=== PATIENT | male | born 1965 | race Caucasian/White ===

== ENCOUNTER 2023-07-06 10:32 | Inpatient (IN) ==
[2023-07-06 11:24] LABS: ABS Basophils 0.1 10^3/uL (0.0-0.1); ABS Eosinophils 0.3 10^3/uL (0.0-0.5); ABS Lymphocytes 2.2 10^3/uL (1.0-4.8); ABS Monocytes 0.7 10^3/uL (0.0-1.1); ABS Neutrophils 5.9 10^3/uL (1.5-7.6); ABS Nucleated RBC 0.02 10^3/ul; Eosinophil % 2.8 %; Hematocrit 46.5 % (38-53); Lymphocyte % 24.2 %; Mean Corpuscular Hemoglobin 29.9 pg (27-33); Mean Corpuscular Hgb Conc 34.5 g/dL (31-36); Mean Corpuscular Volume 86.8 fL (80-97); Mean Platelet Volume 7.9 fL (7.5-11.2); Nucleated Red Blood Cells % 0.2 %/100WBC (0.0-0.8); Platelet Count 226 10^3/uL (150-450); Red Blood Count 5.36 10^6/uL (4.06-5.63); White Blood Count 9.2 10^3/uL (3.6-10.2)
[2023-07-06 11:54] LABS: Albumin 4.3 g/dL (3.2-5.2); Albumin/Globulin Ratio 1.7 (1-3); Calcium 9.4 mg/dL (8.6-10.3); Creatinine, Serum 1.13 mg/dL (0.67-1.17); Globulin 2.5 g/dL (2-4); Magnesium 1.9 mg/dL (1.9-2.7); Potassium 4.4 mmol/L (3.5-5.0); Total Bilirubin 0.7 mg/dL (0.2-1.0); Total Protein 6.8 g/dL (6.4-8.9); eGFR CKD-EPI 74.9 (>60)
[2023-07-06 12:08] LABS: TSH Ultra Thyroid Stim Horm 2.2 mcIU/mL (0.34-5.60)
[2023-07-06 12:50] LABS: High Sensitivity Troponin 1 Hr 13 pg/mL (<20)
[2023-07-06] MEDS ORDERED: Sulfur Hexaflouride MICROSPHR 25 MG VIAL ONE (15:12)
[2023-07-07 06:04] LABS: ABS Basophils 0.1 10^3/uL (0.0-0.1); ABS Eosinophils 0.3 10^3/uL (0.0-0.5); ABS Lymphocytes 1.9 10^3/uL (1.0-4.8); ABS Monocytes 0.6 10^3/uL (0.0-1.1); ABS Neutrophils 4.7 10^3/uL (1.5-7.6); ABS Nucleated RBC 0.02 10^3/ul; Eosinophil % 4.2 %; Hematocrit 44.4 % (38-53); Hemoglobin 15.7 g/dL (13.2-16.3); Mean Corpuscular Hemoglobin 30.2 pg (27-33); Mean Corpuscular Hgb Conc 35.3 g/dL (31-36); Mean Corpuscular Volume 85.6 fL (80-97); Mean Platelet Volume 7.9 fL (7.5-11.2); Nucleated Red Blood Cells % 0.3 %/100WBC (0.0-0.8); Platelet Count 194 10^3/uL (150-450); Red Blood Count 5.18 10^6/uL (4.06-5.63); Red Cell Distribution Width 14.2 % (12-17); White Blood Count 7.6 10^3/uL (3.6-10.2)
[2023-07-07 06:35] LABS: Calcium 8.8 mg/dL (8.6-10.3); Creatinine, Serum 0.95 mg/dL (0.67-1.17); Magnesium 1.8 mg/dL (1.9-2.7); Phosphorus 4.1 mg/dL (2.5-5.0); Potassium 3.9 mmol/L (3.5-5.0); eGFR CKD-EPI 92.2 (>60)
[2023-07-07] MEDS: Magnesium Sulfate 2 gm BAG 2 GM/50 ML BAG IVPB ONE (09:20)
[2023-07-07] MEDS: Atropine 0.1 MG/ML 10 ml SYR (1 mg) ONE (23:35)
[2023-07-08 06:09] LABS: ABS Basophils 0.1 10^3/uL (0.0-0.1); ABS Eosinophils 0.3 10^3/uL (0.0-0.5); ABS Lymphocytes 2.2 10^3/uL (1.0-4.8); ABS Monocytes 0.7 10^3/uL (0.0-1.1); ABS Neutrophils 4.6 10^3/uL (1.5-7.6); ABS Nucleated RBC 0.03 10^3/ul; Eosinophil % 4.2 %; Hematocrit 46.8 % (38-53); Hemoglobin 16.4 g/dL (13.2-16.3); Lymphocyte % 27.7 %; Mean Corpuscular Hemoglobin 30.2 pg (27-33); Mean Corpuscular Volume 86.2 fL (80-97); Mean Platelet Volume 7.8 fL (7.5-11.2); Nucleated Red Blood Cells % 0.4 %/100WBC (0.0-0.8); Platelet Count 204 10^3/uL (150-450); Red Blood Count 5.43 10^6/uL (4.06-5.63); Red Cell Distribution Width 14.1 % (12-17); White Blood Count 7.8 10^3/uL (3.6-10.2)
[2023-07-08 06:39] LABS: Calcium 9.3 mg/dL (8.6-10.3); Magnesium 1.9 mg/dL (1.9-2.7); Phosphorus 4.5 mg/dL (2.5-5.0); Potassium 4.1 mmol/L (3.5-5.0); eGFR CKD-EPI 86.7 (>60)
[2023-07-08] MEDS: NS 0.9% 1000 ml BAG 1,000 ML IV SCH (07:08)
[2023-07-08] MEDS: Magnesium Sulfate 2 gm BAG 2 GM/50 ML BAG IVPB ONE (08:31)
[2023-07-08] MEDS: ceFAZolin 2 GM in NS PREMIX 2 GM/100 ML BAG IVPB ONE (08:37)
[2023-07-08] MEDS ORDERED: Lidocaine 1% VIAL 10 MG/ML 30 ML VIAL ONE ×2 (15:52→16:39)
[2023-07-08] MEDS ORDERED: Midazolam 5 mg/5 ml VIAL 1 mg/ml 5 ml VIAL (5 mg) ONE (15:57)
[2023-07-08] MEDS ORDERED: fentaNYL 100 mcg/2 ml 50 MCG/ML VIAL ONE (15:57)
[2023-07-08] MEDS: ceFAZolin 2 GM/50 ML BAG IV ONE (16:00)
[2023-07-08] MEDS ORDERED: Iohexol 300 (CONTRAST) 10 ML SDV ONE ×2 (16:02→16:45)
[2023-07-08] MEDS: fentaNYL 100 mcg/2 ml 50 MCG/ML VIAL IV SLOW PU ONE (16:30)
[2023-07-08] MEDS: Midazolam 10 mg/10 ml VIAL 1 mg/ml 10 ml VIAL (10 mg) IV SLOW PU ONE (16:30)
[2023-07-08] MEDS ORDERED: KCL 10 MEQ/50 ML IVPREMIX 10 MEQ/50 ML BAG ONE (17:21)
[2023-07-08] MEDS ORDERED: Magnesium Sulfate IV 1GM/100ML 1 GM/100 ML BAG IV ONE (17:22)
[2023-07-08] MEDS: ceFAZolin VIAL 1 GM in NS 0.9% 50 ML 50 ML IVPB SCH (23:13)
[2023-07-09 05:37] LABS: ABS Basophils 0.1 10^3/uL (0.0-0.1); ABS Eosinophils 0.4 10^3/uL (0.0-0.5); ABS Lymphocytes 1.8 10^3/uL (1.0-4.8); ABS Neutrophils 7.3 10^3/uL (1.5-7.6); ABS Nucleated RBC 0.07 10^3/ul; Eosinophil % 3.4 %; Hematocrit 49.9 % (38-53); Hemoglobin 17.7 g/dL (13.2-16.3); Lymphocyte % 16.7 %; Mean Corpuscular Hemoglobin 30.4 pg (27-33); Mean Corpuscular Hgb Conc 35.6 g/dL (31-36); Mean Corpuscular Volume 85.6 fL (80-97); Mean Platelet Volume 7.6 fL (7.5-11.2); Nucleated Red Blood Cells % 0.7 %/100WBC (0.0-0.8); Platelet Count 196 10^3/uL (150-450); Red Blood Count 5.83 10^6/uL (4.06-5.63); Red Cell Distribution Width 14.1 % (12-17); White Blood Count 10.5 10^3/uL (3.6-10.2)
[2023-07-09 06:22] LABS: Calcium 8.7 mg/dL (8.6-10.3); Creatinine, Serum 0.98 mg/dL (0.67-1.17); Phosphorus 3.7 mg/dL (2.5-5.0); Potassium 4.5 mmol/L (3.5-5.0); eGFR CKD-EPI 88.8 (>60)
[2023-07-10 05:41] LABS: ABS Basophils 0.1 10^3/uL (0.0-0.1); ABS Eosinophils 0.3 10^3/uL (0.0-0.5); ABS Lymphocytes 2.2 10^3/uL (1.0-4.8); ABS Neutrophils 4.7 10^3/uL (1.5-7.6); ABS Nucleated RBC 0.04 10^3/ul; Eosinophil % 4.2 %; Hematocrit 48.1 % (38-53); Hemoglobin 16.9 g/dL (13.2-16.3); Lymphocyte % 26.7 %; Mean Corpuscular Hgb Conc 35.2 g/dL (31-36); Mean Corpuscular Volume 85.1 fL (80-97); Mean Platelet Volume 7.4 fL (7.5-11.2); Nucleated Red Blood Cells % 0.4 %/100WBC (0.0-0.8); Platelet Count 176 10^3/uL (150-450); Red Blood Count 5.65 10^6/uL (4.06-5.63); Red Cell Distribution Width 13.7 % (12-17); White Blood Count 8.3 10^3/uL (3.6-10.2)
[2023-07-10 06:25] LABS: Calcium 8.6 mg/dL (8.6-10.3); Creatinine, Serum 0.94 mg/dL (0.67-1.17); Magnesium 1.9 mg/dL (1.9-2.7); Phosphorus 3.8 mg/dL (2.5-5.0); eGFR CKD-EPI 93.4 (>60)
[2023-07-11 11:18] VITALS: BP 132/86
[2023-07-11 11:38] LABS: Calcium 9.7 mg/dL (8.6-10.3); Creatinine, Serum 1.04 mg/dL (0.67-1.17); Potassium 4.2 mmol/L (3.5-5.0); eGFR CKD-EPI 82.7 (>60)
== END 2023-07-11 13:10 | disposition home or self-care (01) | DRG 244 ==
LOC: EDHOLD 10:32 → ED 10:32 → ICU 07-07 11:18 → MEDTELE 07-07 11:35 → SUATTDRO 07-07 12:37 → MEDTELE 07-09 15:10
PROVIDERS: ADMIT Internal Medicine Critical Care Medicine; ATTEND Internal Medicine

== ENCOUNTER 2023-10-19 10:00 | Inpatient (IN) ==
[2023-10-19] MEDS ORDERED: Naloxone 0.4 mg VIAL 0.4 mg/ml 1 ml VIAL IV PRN (10:08)
[2023-10-19] MEDS ORDERED: Acetaminophen IV 1 GM/100ML 1,000 MG/100 ML BAG IV ONE (10:08)
[2023-10-19] MEDS ORDERED: Scopolamine 1 mg/72hr PATCH TRANSDERM ONE (10:08)
[2023-10-19] MEDS ORDERED: Metoclopramide 5 MG/ML VIAL (10 mg) IV PRN (10:08)
[2023-10-19] MEDS ORDERED: Ondansetron 4 mg VIAL 2 MG/ML 2 ml VIAL IV PRN (10:08)
[2023-10-19] MEDS ORDERED: NS 0.45% 1000 ml BAG 1,000 ML IV SCH (11:00)
[2023-10-19] MEDS ORDERED: Bupivacaine 0.5% SDV PF 30ML VIAL ONE (15:21)
[2023-10-19] MEDS ORDERED: Midazolam 2 mg/2 ml VIAL 1 mg/ml 2 ml VIAL (2 mg) ONE (15:25)
[2023-10-19] MEDS ORDERED: fentaNYL 250 mcg/5 ml 50 MCG/ML 5 ml VIAL (250 MCG) ONE (15:25)
[2023-10-19] MEDS ORDERED: Lidocaine 2% PF 5 ML VIAL ONE (15:25)
[2023-10-19] MEDS ORDERED: Propofol 10 MG/ML 20 ML BTL ONE (15:26)
[2023-10-19] MEDS ORDERED: Phenylephrine 40 mcg/mL 10mL (400mcg) SYRINGE ONE (15:51)
[2023-10-19] MEDS: Buffered Lidocaine 1% SYRIN 1 ml INTRADERM ONE (17:09)
[2023-10-19] MEDS ORDERED: fentaNYL 100 mcg/2 ml 50 MCG/ML VIAL ONE (17:16)
[2023-10-19] MEDS: fentaNYL 100 mcg/2 ml 50 MCG/ML VIAL IV PRN (17:20)
[2023-10-19] MEDS: Lactated Ringers 1000 ml BAG 1,000 ML IV SCH (17:20)
[2023-10-21 18:56] VITALS: BP 121/65
== END 2023-10-21 19:10 | disposition home or self-care (01) | DRG 344 ==
LOC: OR 10:00 → SSU 10:00
PROVIDERS: ADMIT Orthopaedic Surgery; ATTEND Orthopaedic Surgery

== ENCOUNTER 2023-10-19 10:58 | Inpatient (IN) ==
[2023-10-19] MEDS ORDERED: Ondansetron ODT 4 mg TAB 4 MG TAB PO PRN (11:25)
[2023-10-19] MEDS ORDERED: ceFAZolin *3* GM in NS PREMIX 3 GM/100 ML BAG IV ONE (14:29)
[2023-10-19] MEDS ORDERED: Vancomycin 1,000 MG in NS 0.9% 250 ml 250 ML IVPB ONE (16:26)
[2023-10-19] MEDS ORDERED: Vancomycin per Pharmacy 1 EA NOTE FOLLOW UP PRN (16:32)
[2023-10-19] MEDS: Lactated Ringers 1000 ml BAG 1,000 ML IV SCH (22:07)
[2023-10-19] MEDS: Magnesium Hydroxide LIQ 30 ML UDC PO SCH (22:17)
[2023-10-19] MEDS: Vancomycin 2,000 MG in NS 0.9% 500 ml BAG 500 ML IVPB ONE (22:31)
[2023-10-20 00:38] LABS: Creatinine, Serum 1.08 mg/dL (0.67-1.17); eGFR CKD-EPI 79.1 (>60)
[2023-10-20] MEDS: Piperacillin/Tazobac 3.375 BAG 3.375 GM/100 ML BAG IV SCH (00:54)
[2023-10-20 06:11] LABS: Hematocrit 41.1 % (38-53); Hemoglobin 14.2 g/dL (13.2-16.3); Mean Platelet Volume 7.1 fL (7.5-11.2); Platelet Count 241 10^3/uL (150-450)
[2023-10-20 06:34] LABS: Calcium 8.9 mg/dL (8.6-10.3); Creatinine, Serum 0.97 mg/dL (0.67-1.17); Potassium 4.3 mmol/L (3.5-5.0); eGFR CKD-EPI 89.9 (>60)
[2023-10-20] MEDS: Vitamin THERAPEUTIC TAB PO SCH (09:33)
[2023-10-20] MEDS: Vancomycin 1,750 MG in NS 0.9% 500 ml BAG 500 ML IVPB SCH ×2 (13:21→14:44)
[2023-10-20] MEDS: Clotrimazole 1% CREAM 45 GM TOPICAL SCH (14:44)
[2023-10-21 06:41] LABS: ABS Basophils 0.1 10^3/uL (0.0-0.1); ABS Eosinophils 0.2 10^3/uL (0.0-0.5); ABS Lymphocytes 2.2 10^3/uL (1.0-4.8); ABS Monocytes 0.6 10^3/uL (0.0-1.1); ABS Neutrophils 4.9 10^3/uL (1.5-7.6); ABS Nucleated RBC 0.01 10^3/ul; Eosinophil % 2.7 %; Hematocrit 39.9 % (38-53); Hemoglobin 14.1 g/dL (13.2-16.3); Lymphocyte % 27.6 %; Mean Corpuscular Hemoglobin 30.5 pg (27-33); Mean Corpuscular Hgb Conc 35.3 g/dL (31-36); Mean Corpuscular Volume 86.5 fL (80-97); Mean Platelet Volume 6.9 fL (7.5-11.2); Nucleated Red Blood Cells % 0.1 %/100WBC (0.0-0.8); Platelet Count 220 10^3/uL (150-450); Red Blood Count 4.62 10^6/uL (4.06-5.63); Red Cell Distribution Width 13.4 % (12-17); White Blood Count 7.9 10^3/uL (3.6-10.2)
[2023-10-21 07:06] LABS: C Reactive Protein 10.02 mg/L (<8.01); Calcium 8.7 mg/dL (8.6-10.3); Creatinine, Serum 0.94 mg/dL (0.67-1.17); Potassium 4.7 mmol/L (3.5-5.0); eGFR CKD-EPI 93.4 (>60)
[2023-10-21 14:22] LABS: Creatinine, Serum 0.95 mg/dL (0.67-1.17); Vancomycin Trough 9.6 mcg/mL; eGFR CKD-EPI 92.2 (>60)
[2023-10-21] MEDS: Enoxaparin 40 MG/0.4 ML SYR SUBCUT SCH (14:27)
[2023-10-21] MEDS: Vancomycin Trough Check NOTE FOLLOW UP ONE (14:46)
[2023-10-21] MEDS: ZOSYN 3.375 GM x ONE DOSE over 30 miuntes IV (20:23)
[2023-10-22] MEDS: ZOSYN 3.375 GM Q8H per EXTENDED INFUSION IV SCH (00:17)
[2023-10-22] MEDS: Vancomycin 1,750 MG in NS 0.9% 500 ml BAG 500 ML IVPB SCH (04:28)
[2023-10-22 06:21] LABS: Hematocrit 41.7 % (38-53); Hemoglobin 14.8 g/dL (13.2-16.3); Mean Platelet Volume 6.7 fL (7.5-11.2); Platelet Count 228 10^3/uL (150-450)
[2023-10-22 06:46] LABS: Creatinine, Serum 0.92 mg/dL (0.67-1.17); eGFR CKD-EPI 95.8 (>60)
[2023-10-22] MEDS: Piperacillin/Tazobac 3.375 BAG 3.375 GM/100 ML BAG IV SCH (14:39)
[2023-10-22 15:33] LABS: Bartonella Henselae IgM <1:20 titer (<1:20); Bartonella Quintana IgG <1:128 titer (<1:128); Bartonella Quintana IgM >=1:20 titer (<1:20)
[2023-10-23 06:05] LABS: Hematocrit 41.9 % (38-53); Hemoglobin 14.9 g/dL (13.2-16.3); Mean Platelet Volume 6.7 fL (7.5-11.2); Platelet Count 230 10^3/uL (150-450)
[2023-10-23 06:38] LABS: Creatinine, Serum 0.98 mg/dL (0.67-1.17); eGFR CKD-EPI 88.8 (>60)
[2023-10-24 06:39] LABS: ABS Basophils 0.1 10^3/uL (0.0-0.1); ABS Eosinophils 0.4 10^3/uL (0.0-0.5); ABS Monocytes 0.7 10^3/uL (0.0-1.1); ABS Nucleated RBC 0.01 10^3/ul; Eosinophil % 4.9 %; Hematocrit 44.7 % (38-53); Hemoglobin 15.9 g/dL (13.2-16.3); Lymphocyte % 24.3 %; Mean Corpuscular Hemoglobin 30.4 pg (27-33); Mean Corpuscular Hgb Conc 35.6 g/dL (31-36); Mean Corpuscular Volume 85.5 fL (80-97); Mean Platelet Volume 6.8 fL (7.5-11.2); Nucleated Red Blood Cells % 0.1 %/100WBC (0.0-0.8); Platelet Count 228 10^3/uL (150-450); Red Blood Count 5.22 10^6/uL (4.06-5.63); Red Cell Distribution Width 13.3 % (12-17); White Blood Count 8.2 10^3/uL (3.6-10.2)
[2023-10-24 07:04] LABS: C Reactive Protein 6.53 mg/L (<8.01); Calcium 9.3 mg/dL (8.6-10.3); Creatinine, Serum 0.96 mg/dL (0.67-1.17); Potassium 4.2 mmol/L (3.5-5.0); eGFR CKD-EPI 91.1 (>60)
[2023-10-24 14:50] LABS: Creatinine, Serum 0.99 mg/dL (0.67-1.17); eGFR CKD-EPI 87.8 (>60)
[2023-10-24 17:11] LABS: HIV 4th Generation Nonreactive (Nonreactive)
[2023-10-24] MEDS: Vancomycin Trough Check NOTE FOLLOW UP ONE (18:31)
[2023-10-25] MEDS: Clotrimazole 1% CREAM 30 gm TOPICAL SCH (10:25)
[2023-10-25 10:26] VITALS: BP 117/78
== END 2023-10-25 13:10 | disposition home or self-care (01) | DRG 316 ==
LOC: OBSVTOIN 11:25 → INTOOBSV 11:52 → SSU 11:52
PROVIDERS: ADMIT Orthopaedic Surgery; ATTEND Orthopaedic Surgery